=== PATIENT | female | born 2000 | race Caucasian/White ===

== ENCOUNTER 2021-07-08 13:20 | Emergency (ER) | payer BC, SELFPAY ==
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
[2021-07-08 13:40] VITALS: BP 130/97; PULSE 62; RESP 18; TEMP 36.3; O2SAT 100
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
[2021-07-08] MEDS: KETOROLAC (*BKC) 60 MG/2 ML VIAL IM (14:44)
[2021-07-08] MEDS: ONDANSETRON HCL ODT 4 MG TABLET PO (14:45)
[2021-07-08 18:33] VITALS: BP 127/78; PULSE 65; RESP 15; O2SAT 99
[2021-07-08 20:03] VITALS: BP 118/84; PULSE 73; RESP 18; O2SAT 99
== END 2021-07-08 20:05 | disposition home or self-care (01) ==
PROVIDERS: Emergency Provider Emergency Medicine
DX: S33.5XXA Sprain of ligaments of lumbar spine, initial encounter (principal); V48.5XXA Car driver injured in noncollision transport accident in traffic accident, initial encounter
CPT/HCPCS: 70450; 71045; 72125; 72128; 72131; 81025; 96372; 99284; A9270; J1885